=== PATIENT | female | born 1970 | race American Indian/Alaskan Native ===

== ENCOUNTER 2018-12-23 17:54 | Emergency (ER) | payer SELFPAY ==
[2018-12-23 18:13] VITALS: BP 111/68
[2018-12-23] MEDS ORDERED: ASPIRIN PO ONE (18:15)
--- NOTE | 2018-12-23 18:15 | Event Note ---
ED Screening Note Date of service: 12/23/18 Time: 18:11 ED Screening Note: This is a 48 y.o. F. that presents to the ER with sharp chest pain that started a few hours prior to arrival. Patient states she is working out but felt fine until symptoms started. Denies fever, chills, cough, palpitations, or sob This initial assessment/diagnostic orders/clinical plan/treatment(s) is/are subject to change based on patients health status, clinical progression and re- assessment by fellow clinical providers in the ED. Further treatment and workup at subsequent clinical providers discretion. Patient/guardian urged not to elope from the ED as their condition may be serious if not clinically assessed and managed. Initial orders include: Labs, ekg, & cxr
[2018-12-23 18:27] LABS: Basophils % (Auto) 0.7 % (0.0-1.8); Eosinophils % (Auto) 1.2 % (0.0-4.3); Hematocrit 33.7 % (30.3-42.9); Hemoglobin 11.3 gm/dl (10.1-14.3); Lymphocytes % (Auto) 50.5 % (13.4-35.0); Mean Corpuscular HGB Conc 34 % (30-34); Mean Corpuscular Volume 79 fl (79-97); Monocytes # (Auto) 0.5 K/mm3 (0.0-0.8); Monocytes % (Auto) 11.6 % (0.0-7.3); Platelet Count 204 K/mm3 (140-440); Red Blood Count 4.28 M/mm3 (3.65-5.03); Red Cell Distribution Width 14.8 % (13.2-15.2)
[2018-12-23 18:48] LABS: BUN/Creatinine Ratio 14; Blood Urea Nitrogen 11 mg/dL (7-17); Hemolysis Index 6
--- NOTE | 2018-12-23 18:54 | XRay Report ---
CHEST 2 VIEWS INDICATION / CLINICAL INFORMATION: Chest Pain. COMPARISON: None available. FINDINGS: SUPPORT DEVICES: None. HEART / MEDIASTINUM: No significant abnormality. LUNGS / PLEURA: No significant pulmonary or pleural abnormality. No pneumothorax. ADDITIONAL FINDINGS: No significant additional findings. IMPRESSION: 1. No acute finding. Signer Name: Tree Willingham MD Signed: 12/23/2018 6:50 PM Workstation Name: [id number]
--- NOTE | 2018-12-23 20:13 | Emergency Department Report ---
ED Chest Pain HPI - General Chief Complaint: Chest Pain Stated Complaint: CHEST PAIN Time Seen by Provider: 12/23/18 18:11 Source: patient Mode of arrival: Ambulatory Limitations: No Limitations - History of Present Illness Initial Comments: Ms. Vu is a healthy 48-year-old female who presents with 4 episodes of chest pain while at rest today. She has had left-sided sharp chest pain which lasts seconds at a time. 4 episodes while at rest. She denies associated shortness of breath. She did have associated left arm numbness left shoulder numbness. She works out 4 days a week. She does not have chest pain or shortness of breath while working out. She uses 5 hour energy drinks approximately once a week. No recent travel. No leg pain. No use of oral contraceptives. No use of hormone therapy. Past medical history includes total mastectomy 2006. At that time she had inconclusive evaluation for breast cancer. No official diagnosis. However with extensive family history of breast cancer, she decided for elective mastectomy. There is a family history of cardiac disease. MD Complaint: chest pain -: Sudden, This afternoon Onset: during rest Pain Location: left chest Pain Radiation: other (left arm numbness) Severity: mild, moderate Severity scale (0 -10): 6 Quality: sharp Consistency: now resolved Improves With: nothing Worsens With: nothing - Related Data Allergies Allergy/AdvReac Type Severity Reaction Status Date / Time acetaminophen [From Percocet] Allergy Hives Verified 12/23/18 17:55 oxycodone [From Percocet] Allergy Hives Verified 12/23/18 17:55 Heart Score - HEART Score History: Slightly suspicious EKG: Non-specific Age: 45-65 Risk factors: 1-2 risk factors Troponin: < normal limit HEART Score: 3 ED Review of Systems ROS: Stated complaint: CHEST PAIN Other details as noted in HPI Comment: All other systems reviewed and negative Constitutional: denies: fever, malaise ENT: denies: ear pain Respiratory: denies: cough, shortness of breath Cardiovascular: chest pain Neurological: paresthesias ED Past Medical Hx - Past Medical History Previous Medical History?: No - Surgical History Past Surgical History?: Yes Hx Cholecystectomy: Yes Additional Surgical History: TUBAL LIGATITION/ DOUBLE MAST-2006. ROTATOR CUFF - Family History Family history: CAD/WA, cancer - Social History Smoking Status: Never Smoker Substance Use Type: None ED Physical Exam - General Limitations: No Limitations General appearance: alert, in no apparent distress - Head Head exam: Present: atraumatic, normocephalic - Eye Eye exam: Present: normal appearance - ENT ENT exam: Present: mucous membranes moist - Neck Neck exam: Present: normal inspection, full ROM. Absent: tenderness, meningismus - Respiratory Respiratory exam: Present: normal lung sounds bilaterally. Absent: respiratory distress, wheezes, rales, rhonchi - Cardiovascular Cardiovascular Exam: Present: regular rate, normal rhythm, normal heart sounds. Absent: systolic murmur, diastolic murmur, rubs, gallop - GI/Abdominal GI/Abdominal exam: Present: soft, normal bowel sounds. Absent: distended, tenderness, guarding, rebound - Extremities Exam Extremities exam: Present: normal inspection - Back Exam Back exam: Present: normal inspection - Neurological Exam Neurological exam: Present: alert, oriented X3 - Psychiatric Psychiatric exam: Present: normal affect, normal mood - Skin Skin exam: Present: warm, dry, intact, normal color. Absent: rash ED Course Vital Signs 12/23/18 18:11 Temperature 98.6 F Pulse Rate 67 Respiratory 16 Rate Blood Pressure 111/68 O2 Sat by Pulse 99 Oximetry ED Medical Decision Making - Lab Data Result diagrams: 12/23/18 18:18 12/23/18 18:18 Laboratory Results - last 24 hr 12/23/18 12/23/18 18:18 18:18 WBC 4.1 L RBC 4.28 Hgb 11.3 Hct 33.7 MCV 79 MCH 26 L MCHC 34 RDW 14.8 Plt Count 204 Lymph % (Auto) 50.5 H Colbert % (Auto) 11.6 H Eos % (Auto) 1.2 Baso % (Auto) 0.7 Lymph # 2.0 Colbert # 0.5 Eos # 0.0 Baso # 0.0 Seg Neutrophils % 36.0 L Seg Neutrophils # 1.5 L Sodium 137 Potassium 3.7 Chloride 101.8 Carbon Dioxide 23 Anion Gap 16 BUN 11 Creatinine 0.8 Estimated GFR > 60 BUN/Creatinine Ratio 14 Glucose 88 Calcium 9.0 Troponin T < 0.010 Laboratory Results - last 24 hr 12/23/18 12/23/18 12/23/18 18:18 18:18 20:11 WBC 4.1 L RBC 4.28 Hgb 11.3 Hct 33.7 MCV 79 MCH 26 L MCHC 34 RDW 14.8 Plt Count 204 Lymph % (Auto) 50.5 H Colbert % (Auto) 11.6 H Eos % (Auto) 1.2 Baso % (Auto) 0.7 Lymph # 2.0 Colbert # 0.5 Eos # 0.0 Baso # 0.0 Seg Neutrophils % 36.0 L Seg Neutrophils # 1.5 L Sodium 137 Potassium 3.7 Chloride 101.8 Carbon Dioxide 23 Anion Gap 16 BUN 11 Creatinine 0.8 Estimated GFR > 60 BUN/Creatinine Ratio 14 Glucose 88 Calcium 9.0 Troponin T < 0.010 < 0.010 - EKG Data 12/23/18 20:10 EKG obtained 1801 Normal sinus rhythm rate 65 bpm, normal axis, normal intervals no significant ST elevation no T-wave inversions V1 and V2 V3 nonspecific T wave pattern - Radiology Data Radiology results: report reviewed Chest x-ray: No acute process according to radiology report - Medical Decision Making Ms. Vu present with chest pain atypical for acute coronary syndrome. PERC negative for embolism. Chest pain is typical for ectopy such as PVCs. ED staff has arranged for outpatient cardiology referral. She understands to keep this cardiology appointment which will be arranged for her within the next few days. She also has been initiated to follow up with her primary care physician. Two sets of troponin negative Heart Score 3 Dc'd home Critical care attestation.: If time is entered above; I have spent that time in minutes in the direct care of this critically ill patient, excluding procedure time. ED Disposition Clinical Impression: Chest pain Disposition: DC-01 TO HOME OR SELFCARE Is pt being admited?: No Does the pt Need Aspirin: No Condition: Stable Instructions: Chest Pain (ED) Referrals: MAYA VALLEJO MD [Staff Physician] - 2-3 Days PRIMARY CARE, [Primary Care Provider] - 3-5 Days
== END 2018-12-23 21:26 | disposition home or self-care (01) ==
LOC: ED 17:54
DX: R07.89 Other chest pain (principal); Z90.49 Acquired absence of other specified parts of digestive tract; Z98.51 Tubal ligation status; Z88.6 Allergy status to analgesic agent; Z88.5 Allergy status to narcotic agent
CPT/HCPCS: 36415; 71046; 80048; 84484; 85025; 93005; 93010

== ENCOUNTER 2019-02-20 18:42 | Emergency (ER) | payer SELFPAY ==
--- NOTE | 2019-02-20 19:03 | Emergency Department Report ---
Blank Doc - Documentation Documentation: 49-year-old female that presents with URI symptoms with chest pain during cough and deep breathes only. This initial assessment/diagnostic orders/clinical plan/treatment(s) is/are subject to change based on patient's health status, clinical progression and re- assessment by fellow clinical providers in the ED. Further treatment and workup at subsequent clinical providers discretion. Patient/guardians urged not to elope from the ED as their condition may be serious if not clinically assessed and managed. Initial orders include: 1- Patient sent to [facility] for further evaluation and treatment 2- CXR
[2019-02-20 19:04] VITALS: BP 108/73
--- NOTE | 2019-02-20 19:45 | XRay Report ---
CHEST 2 VIEWS 1923 INDICATION / CLINICAL INFORMATION: cough COMPARISON: 12/23/2018 FINDINGS: SUPPORT DEVICES: None. HEART / MEDIASTINUM: No significant abnormality. LUNGS / PLEURA: No significant pulmonary or pleural abnormality. No pneumothorax. ADDITIONAL FINDINGS: No significant additional findings. IMPRESSION: No significant acute abnormality Signer Name: Tmo Grady MD Signed: 02/20/2019 7:40 PM Workstation Name: [id number]
--- NOTE | 2019-02-20 23:56 | Emergency Department Report ---
Minor Respiratory - HPI Chief Complaint: Upper Respiratory Infection Stated Complaint: CHEST PAIN Time Seen by Provider: 02/20/19 19:02 Duration: 3 weeks Pain Location: Nose, Chest Severity: moderate Minor Respiratory: Yes Rhinorrhea, Yes Able to Tolerate Fluids, Yes Cough, Yes Sick Contacts, Yes Chest Pain, No Sore Throat, No Ear Pain, No Hemoptysis, No Shortness of Breath, No Fever Other History: This is a 49-year-old -[place] female presents to the emergency room with chest pain, cough, and congestion for 3 weeks. Patient states she has taken [id number] cold and flu medication with minimal relief. ED Review of Systems ROS: Stated complaint: CHEST PAIN Other details as noted in HPI Constitutional: denies: chills, fever ENT: congestion. denies: ear pain, throat pain Respiratory: cough. denies: shortness of breath, wheezing Cardiovascular: chest pain. denies: palpitations Gastrointestinal: denies: abdominal pain, nausea, diarrhea Musculoskeletal: denies: back pain, joint swelling, arthralgia Skin: denies: rash, lesions Neurological: denies: headache, weakness, paresthesias Psychiatric: denies: anxiety, depression ED Past Medical Hx - Past Medical History Previous Medical History?: No - Surgical History Past Surgical History?: Yes Hx Cholecystectomy: Yes Additional Surgical History: TUBAL LIGATITION/ DOUBLE MAST-2006. ROTATOR CUFF - Social History Smoking Status: Never Smoker Substance Use Type: None - Medications Home Medications: Home Medications Medication Instructions Recorded Confirmed Last Taken Type Azithromycin [Zithromax Z-WILLIAMS] 250 mg PO DAILY #6 tablet 02/20/19 Unknown Rx methylPREDNISolone [Medrol 4MG 4 mg PO DAILY #1 tab.ds.pk 02/20/19 Unknown Rx DOSEPAK (21 tabs)] ALBUTEROL Inhaler (OR & NICU) 2 puff IH QID PRN #8.5 gram 02/21/19 Unknown Rx [ProAir HFA Inhaler] Minor Respiratory Exam - Exam General: Vital signs noted. No distress. Alert and acting appropriately. HEENT: Yes Moist Mucous Membranes, Yes Rhinorrhea (turbinates congested), No Pharyngeal Erythema, No Pharyngeal Exudates, No Conjuctival Injection, No Frontal Tenderness, No Maxillary Tenderness Ear: Neither TM Bulge, Neither TM Erythema, Neither EAC Pain, Neither EAC Discharge Neck: Yes Supple, No Adenopathy Lungs: Yes Good Air Exchange, Yes Cough, No Wheezes, No Ronchi, No Stridor, No Labored Respirations, No Retractions, No Use of Accessory Muscles, No Other Abnormal Lung Sounds Heart: Yes Regular, No Murmur Abdomen: Yes Normal Bowel Sounds, No Tenderness, No Peritoneal Signs Skin: No Rash, No Edema Neurologic: Alert and oriented, no deficits. Musculoskeletal: Unremarkable. ED Course Vital Signs 02/20/19 19:02 Temperature 97.5 F L Pulse Rate 72 Respiratory 18 Rate Blood Pressure 108/73 O2 Sat by Pulse 100 Oximetry ED Medical Decision Making - Radiology Data Radiology results: report reviewed CHEST 2 VIEWS 1922 INDICATION / CLINICAL INFORMATION: cough COMPARISON: 12/23/2018 FINDINGS: SUPPORT DEVICES: None. HEART / MEDIASTINUM: No significant abnormality. LUNGS / PLEURA: No significant pulmonary or pleural abnormality. No pneumothorax. ADDITIONAL FINDINGS: No significant additional findings. IMPRESSION: No significant acute abnormality - Medical Decision Making Patient examined by his provider and stable. No distress noted. Vitals normal. Mild congestion on exam, no posterior pharynx erythema. Chest xray has been obtained and dictated by radiologist. No acute cardiopulmonary findings. Acute bronchitis. Start Medrol Dosepak, albuterol inhaler, and Z-williams. Patient notified of ER plan with no questions. Discharged home stable. Follow up with Primary Care Provider in 2-3 days. Critical care attestation.: If time is entered above; I have spent that time in minutes in the direct care of this critically ill patient, excluding procedure time. ED Disposition Clinical Impression: Chest pain on respiration, Cough in adult patient, Bronchitis Disposition: TO HOME OR SELFCARE Is pt being admited?: No Condition: Stable Instructions: Chest Pain (ED), Acute Bronchitis (ED) Additional Instructions: Increase fluid intake and rest. Wash hands frequently. Continue taking Tylenol or ibuprofen to control fever. F/U with Primary Care Provider. Return to ER if fever, SOB, or difficulty breathing after 48 hours of supportive care. Prescriptions: methylPREDNISolone [Medrol 4MG DOSEPAK (21 tabs)] 4 mg PO DAILY #1 tab.ds.pk ALBUTEROL Inhaler (OR & NICU) [ProAir HFA Inhaler] 2 puff IH QID PRN #8.5 gram PRN Reason: Shortness Of Breath Azithromycin [Zithromax Z-WILLIAMS] 250 mg PO DAILY #6 tablet Referrals: [facility] [Outside] - 3-5 Days [facility] [place] [Outside] - 3-5 Days [facility] [place] [Outside] - 3-5 Days Forms: Work/School Release Form(ED) Time of Disposition: 23:55
== END 2019-02-21 00:05 | disposition home or self-care (01) ==
LOC: ED 18:42
DX: J40 Bronchitis, not specified as acute or chronic (principal); Z98.51 Tubal ligation status; Z90.49 Acquired absence of other specified parts of digestive tract; Z79.899 Other long term (current) drug therapy; Z88.6 Allergy status to analgesic agent
CPT/HCPCS: 71046